=== PATIENT | male | born 1960 | race Caucasian/White ===

== ENCOUNTER 2018-02-06 14:59 | Emergency (ER) | payer OTHER ==
[2018-02-06] MEDS ORDERED: Cyclobenzaprine 10 MG Tab PO ONE (15:41)
[2018-02-06] MEDS ORDERED: Ibuprofen 800 MG Tab PO ONE (15:41)
--- NOTE | 2018-02-06 15:42 | EDM.PDOC ---
ED HPI GENERAL MEDICAL PROBLEM - General Chief Complaint: Head Injury Stated Complaint: HEAD AND BACK INJURY WITH SYNCOPE Time Seen by Provider: 02/06/18 15:16 Source of Information: Reports: Patient History Limitations: Reports: No Limitations - History of Present Illness INITIAL COMMENTS - FREE TEXT/NARRATIVE: 57 y/o M with headache, neck pain, and back pain after slipping on the ice. Works as a truck service technician, was at water station and slipped on a patch of ice. Fell back. Hit head. Positive LOC for about 10 seconds. Was able to get up but has had worsening neck and back pain. Headache is mild. No confusion/weakness. No vomiting. Has pain in left neck area. Also has diffuse low sharp back pain. Pain is constant, much worse with movement. Able to ambulate. No weakness/ numbness. No additional injury. Pain is moderate. No chest pain, SOB, abd pain. Lower Back Pain Score (Numeric/FACES): 9 - Related Data Allergies Allergy/AdvReac Type Severity Reaction Status Date / Time No Known Allergies Allergy Verified 02/06/18 15:17 Home Meds: Home Meds Allopurinol [Zyloprim] 300 mg PO DAILY 02/06/18 [History] Chlorthalidone 25 mg PO DAILY 02/06/18 [History] Cyclobenzaprine [Flexeril] 10 mg PO TID PRN #20 tab 02/06/18 [Rx] Ibuprofen [Motrin] 800 mg PO TID PRN #45 tab 02/06/18 [Rx] Losartan [Cozaar] 25 mg PO DAILY 02/06/18 [History] Naproxen [Naprosyn] 500 mg PO DAILY 02/06/18 [History] Simvastatin [Zocor] 10 mg PO DAILY 02/06/18 [History] metFORMIN [Glucophage XR] 250 mg PO DAILY 02/06/18 [History] oxyCODONE 5 mg PO QID PRN #8 tab 02/06/18 [Rx] Past Medical History Cardiovascular History: Reports: High Cholesterol, Hypertension, Other (See Below) Other Cardiovascular History: frequent PVC's Musculoskeletal History: Reports: Gout Neurological History: Reports: Head Trauma Endocrine/Metabolic History: Reports: Diabetes, Type II - Past Surgical History Musculoskeletal Surgical History: Reports: Shoulder Surgery Social & Family History - Tobacco Use Smoking Status *Q: Never Smoker - Caffeine Use Caffeine Use: Reports: Coffee, Energy Drinks - Recreational Drug Use Recreational Drug Use: No ED ROS GENERAL - Review of Systems Review Of Systems: See Below Constitutional: Denies: Fever Respiratory: Denies: Shortness of Breath, Cough Cardiovascular: Denies: Chest Pain GI/Abdominal: Denies: Abdominal Pain Musculoskeletal: Reports: Neck Pain, Back Pain Skin: Denies: Wound Neurological: Reports: Headache. Denies: Confusion, Dizziness ED EXAM, HEAD INJURY - Physical Exam Exam: See Below Exam Limited By: No Limitations General Appearance: Alert, WD/WN, No Apparent Distress Head: Normocephalic, Other (posterior scalp abrasion with mild soft tissue swelling, no crepitus or laceration ) Eyes: Bilateral Eye: EOMI, Normal Inspection, PERRL Ears: Normal External Exam Nose: Normal Inspection Throat/Mouth: Normal Inspection, Normal Oropharynx, Normal Voice, No Airway Compromise Neck: Normal Alignment, Normal Inspection, Paraspinous Muscle Tender, Tender Midline (Mid C spine TTP, no step offs or deformities, diffuse paraspinal TTP In L lateral C spine area.), Other Respiratory: No Respiratory Distress, Lungs Clear Cardiovascular: Normal Peripheral Pulses, Regular Rate, Rhythm Back Exam: Normal Inspection, Vertebral Tenderness (mid L spine, no step offs or deformities, skin normal ). No: CVA Tenderness (L), CVA Tenderness (R) Extremities: Normal Inspection Neurologic: optical store manager II-XII nml As Tested, No Motor/Sensory Deficits, Alert, Normal Mood/Affect, Oriented x 3 Skin: Normal Color, Warm/Dry Course - Vital Signs Last Recorded V/S: Last Vital Signs Temp 36.6 C 02/06/18 15:08 Pulse 68 02/06/18 15:08 Resp 16 02/06/18 15:08 BP 144/68 H 02/06/18 15:08 Pulse Ox 96 02/06/18 15:08 - Orders/Labs/Meds Orders: Active Orders 24 hr Category Date Time Status Lumbar Spine 2 or 3V [CR] Stat Exams 02/06/18 15:40 Taken Meds: Medications Discontinued Medications Generic Name Dose Route Start Last Admin Trade Name Freq PRN Reason Stop Dose Admin Cyclobenzaprine HCl 10 mg 02/06/18 15:41 02/06/18 16:00 Flexeril PO 02/06/18 15:42 10 mg ONETIME ONE Administration Ibuprofen 800 mg 02/06/18 15:41 02/06/18 15:59 Motrin PO 02/06/18 15:42 800 mg ONETIME ONE Administration - Re-Assessments/Exams Free Text/Narrative Re-Assessment/Exam: 02/06/18 18:26 CT head and C spine neg. XR L spine neg. Will treat for musculoskeletal pain. Departure - Departure Time of Disposition: 17:00 Disposition: Home, Self-Care 01 Clinical Impression: Neck pain Scalp abrasion Qualifiers: Encounter type: initial encounter Qualified Code(s): S00.01XA - Abrasion of scalp, initial encounter Back pain Qualifiers: Back pain location: low back pain Chronicity: acute Back pain laterality: midline Sciatica presence: without sciatica Qualified Code(s): M54.5 - Low back pain - Discharge Information Prescriptions: Cyclobenzaprine [Flexeril] 10 mg PO TID PRN #20 tab PRN Reason: Muscle Spasm Ibuprofen [Motrin] 800 mg PO TID PRN #45 tab PRN Reason: Pain oxyCODONE 5 mg PO QID PRN #8 tab PRN Reason: Pain Instructions: Abrasion, Cervical Sprain, Back Pain, Adult, [id number], Abrasion, [id number] Referrals: PCP,Not In Area [Primary Care Provider] - Forms: ED Department Discharge Additional Instructions: 1. Take ibuprofen as needed for pain. OK to take acetaminophen (Tylenol) in addition to ibuprofen - these medications work in different ways and are cleared by the body in different ways. 2. Take cyclobenzaprine (Flexeril) as needed for muscle spasm. 3. Take oxycodone as needed for severe pain. Noble this medication for pain that is not controlled by the above medications. Do not drive or operate heavy machinery or drink alcohol while taking oxycodone as it can cause dangerous drowsiness or confusion. 4. Ice areas of pain. After two days, ok to switch to heat. If you have persistent pain please follow up with your primary doctor for further care, including possible referrals to physical therapy if your symptoms aren't improving. - My Orders Last 24 Hours: My Active Orders 02/06/18 15:40 Lumbar Spine 2 or 3V [CR] Stat - Assessment/Plan Last 24 Hours: My Active Orders 02/06/18 15:40 Lumbar Spine 2 or 3V [CR] Stat
--- NOTE | 2018-02-06 16:47 | CT ---
CT cervical spine Technique: Multiple axial sections were obtained from above C1 inferiorly to the mid T2 level. Reconstruction sagittal and coronal images were reviewed. Comparison: No previous cervical spine imaging. Findings: Degenerative change is are noted between the dens and anterior arch of C1. Diffuse anterior osteophytes noted throughout the cervical spine. Mild disc space narrowing is noted at C6-7 and C7-T1 as well as T1-2. Minimal posterior osteophytes are seen at C3-4 as well as C6-7. Mild neural foraminal stenosis is noted at C3-4. Other neural foramina are fairly well patent. Mild degenerative change is scattered throughout the apophyseal joints. Ligamentum nuchal calcification is seen. No fracture is appreciated. No abnormal subluxation is seen. Mild diffuse degenerative change is seen within the uncovertebral joints. Impression: 1. Diffuse degenerative change throughout the cervical spine. 2. Nothing acute is seen on CT study of the cervical spine. Diagnostic code #3
--- NOTE | 2018-02-06 16:48 | CT ---
Head CT Technique: Multiple axial sections through the brain were obtained. Intravenous contrast was not utilized. Comparison: No previous intracranial imaging. Findings: Ventricles along with basal cisterns and sulci over the convexities are within normal limits for the patient's age. No abnormal parenchymal densities are seen. No evidence of intracranial hemorrhage. No midline shift or mass effect is seen. Old appearing fracture is noted within the medial right orbital wall with inward displacement. Mild mucosal thickening is seen within the ethmoid sinuses. Retention cyst is believed to be present within the medial left maxillary sinus. Old fracture is noted within the inferior orbital rim with what appears to be fixation wire. Nasal bone fracture is also seen most likely old. No acute calvarial abnormality is seen. Impression: 1. Old bony trauma as noted above. 2. Mucosal thickening within the ethmoid sinuses as well as probable retention cyst within the medial left maxillary sinus. 3. No acute intracranial abnormality is identified. Diagnostic code #2
--- NOTE | 2018-02-07 09:05 | CR ---
Lumbar spine: AP, lateral and coned-down lateral views centered to the lumbosacral junction were obtained. Comparison: No prior study. Diffuse disc space narrowing is noted within the lower thoracic spine as well as moderate disc space narrowing at L1-L2 and L2-L3. Posterior disc space narrowing is noted at L3-L4 and L5-S1. Diffuse endplate osteophytes are seen anteriorly and laterally throughout the lumbar spine and lower thoracic spine. Sacroiliac joints appear within normal limits. No acute fracture or abnormal subluxation is seen. Visualized pedicles, transverse and spinous processes appear intact. Impression: 1. Diffuse degenerative change. 2. Nothing acute is appreciated on three-view lumbar spine exam. Diagnostic code #2
== END 2018-02-06 17:02 | disposition home or self-care (01) ==
LOC: JD.ED 14:59
DX: S00.01XA Abrasion of scalp, initial encounter (principal); M54.5 Low back pain; M54.2 Cervicalgia; I10 Essential (primary) hypertension; E78.00 Pure hypercholesterolemia, unspecified; Z79.84 Long term (current) use of oral hypoglycemic drugs; Z79.899 Other long term (current) drug therapy; W00.0XXA Fall on same level due to ice and snow, initial encounter
CPT/HCPCS: 70450; 72100; 72125; 99284; A9270; 99283

== ENCOUNTER 2019-05-09 15:43 | Emergency (ER) | payer OTHER ==
[2019-05-09] MEDS ORDERED: Ketorolac 30 MG/ML SDV IM ONE (17:09)
--- NOTE | 2019-05-09 17:20 | EDM.PDOC ---
ED HPI GENERAL MEDICAL PROBLEM - General Chief Complaint: Back Pain or Injury Stated Complaint: BACK AND LEG INJURY Time Seen by Provider: 05/09/19 16:18 Source of Information: Reports: Patient, RN Notes Reviewed History Limitations: Reports: No Limitations - History of Present Illness INITIAL COMMENTS - FREE TEXT/NARRATIVE: Patient is a 59-year-old male who presents to the ED for the evaluation of a back injury. 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 While he was at work yesterday around 4:30 he was getting out of his truck in using the 3 point contact method he normally does, when he forgot his hard hat and reached into the cab to retrieve his hard hat and ended up missing a portion of the step, this resulted in him falling to the ground. He thinks that this is about 4 feet above the ground. He denies any loss of consciousness, blacking out or head or neck pain. He states that his pain is mostly into his left lower back and into his left anterior leg. He denies any previous injury to his lower back. He did take 1 Aleve last night and one Aleve this morning, this is provided little relief. Patient does have a slight limp due to the injury. This limp has not been present before the injury. 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: Other (see below) Other Treatments RESEARCH TEST ENGINE OPERATOR: naproxen this am Lower Back Pain Score (Numeric/FACES): 10 Left Knee Pain Score (Numeric/FACES): 6 - Related Data Allergies Allergy/AdvReac Type Severity Reaction Status Date / Time No Known Allergies Allergy Verified 02/06/18 15:17 Home Meds: Home Meds Chlorthalidone 25 mg PO DAILY 02/06/18 [History] Naproxen [Naprosyn] 500 mg PO DAILY 02/06/18 [History] Simvastatin [Zocor] 10 mg PO DAILY 02/06/18 [History] metFORMIN [Glucophage XR] 250 mg PO DAILY 02/06/18 [History] Orphenadrine [Norflex] 100 mg PO BID PRN #20 tab 05/09/19 [Rx] Past Medical History Cardiovascular History: Reports: High Cholesterol, Hypertension, Other (See Below) Other Cardiovascular History: frequent PVC's Musculoskeletal History: Reports: Gout Neurological History: Reports: Head Trauma Endocrine/Metabolic History: Reports: Diabetes, Type II - Past Surgical History Musculoskeletal Surgical History: Reports: Shoulder Surgery Social & Family History - Tobacco Use Smoking Status *Q: Never Smoker - Caffeine Use Caffeine Use: Reports: Coffee, Energy Drinks - Recreational Drug Use Recreational Drug Use: No ED ROS GENERAL - Review of Systems Review Of Systems: See Below Constitutional: Reports: No Symptoms HEENT: Reports: No Symptoms Respiratory: Reports: No Symptoms Cardiovascular: Reports: No Symptoms Endocrine: Reports: No Symptoms GI/Abdominal: Reports: No Symptoms : Reports: No Symptoms Musculoskeletal: Reports: No Symptoms Skin: Reports: No Symptoms Neurological: Denies: Numbness, Tingling, Weakness Psychiatric: Reports: No Symptoms Hematologic/Lymphatic: Reports: No Symptoms Immunologic: Reports: No Symptoms ED EXAM,LOWER BACK PAIN/INJURY - Physical Exam Exam: See Below Exam Limited By: No Limitations General Appearance: Alert, WD/WN, No Apparent Distress Eye Exam: Bilateral Eye: EOMI, Normal Inspection, PERRL Ears: Normal External Exam, Normal TMs Nose: Normal Inspection Throat/Mouth: Normal Inspection, Normal Lips, Normal Teeth, Normal Gums, Normal Oropharynx, Normal Voice, No Airway Compromise Head: Atraumatic, Normocephalic Neck: Normal Inspection, Supple, Non-Tender, Full Range of Motion Respiratory/Chest: No Respiratory Distress, Lungs Clear, Normal Breath Sounds, No Accessory Muscle Use, Chest Non-Tender Cardiovascular: Normal Peripheral Pulses, Regular Rate, Rhythm, No Murmur GI/Abdominal: Normal Bowel Sounds, Soft, Non-Tender, No Distention, No Mass Back Exam: Normal Inspection, Decreased Range of Motion (d/t pain), Other (Left lower back tenderness just lateral to spinal column above iliac crest) Extremities: Normal Inspection, Normal Range of Motion (he states that he appreciates pain when he fully extends and locks out his knee, there is pain into upper anterior thigh and into Left lower back.), Normal Capillary Refill Neurological: Alert, Normal Mood/Affect, Normal Dorsiflexion, Normal Plantar Flexion, Normal Gait, Normal Reflexes, No Motor/Sensory Deficits, Oriented x 3, Abnormal Gait (limping gait d/t pain) Psychiatric: Normal Affect, Normal Mood Skin Exam: Warm, Dry, Intact, Normal Color, No Rash Course - Vital Signs Last Recorded V/S: Last Vital Signs Temp 98.1 F 05/09/19 16:01 Pulse 41 L 05/09/19 16:01 Resp 20 05/09/19 16:01 BP 147/82 H 05/09/19 16:01 Pulse Ox 95 05/09/19 16:01 - Orders/Labs/Meds Orders: Active Orders 24 hr Category Date Time Status Lumbar Spine 2 or 3V [CR] Stat Exams 05/09/19 16:56 Taken Meds: Medications Discontinued Medications Generic Name Dose Route Start Last Admin Trade Name Freq PRN Reason Stop Dose Admin Ketorolac Tromethamine 30 mg 05/09/19 17:09 05/09/19 17:42 Toradol IM 05/09/19 17:10 30 mg ONETIME ONE Administration - Re-Assessments/Exams Free Text/Narrative Re-Assessment/Exam: 05/09/19 17:21 Patient presents to the ED for the evaluation of a lower back and left leg injury. Have ordered lumbar x-rays as most of his pain is into his lower back and does not seem to be in his hip or pelvis at all. Have ordered 30mg IM toradol for initial pain management. 05/09/19 17:54 Patient's lumbar x-rays are done, and did not demonstrate any acute bony abnormality or fracture at this time these were reviewed by myself and Dr. Miller, there does appear to be some straightening of the lordotic curve which may be suggestive of muscle spasm in the area. Departure - Departure Time of Disposition: 18:48 Disposition: Home, Self-Care 01 Condition: Fair Clinical Impression: Lower back pain Qualifiers: Chronicity: acute Back pain laterality: left Sciatica presence: with sciatica Sciatica laterality: sciatica of left side Qualified Code(s): M54.42 - Lumbago with sciatica, left side - Discharge Information *PRESCRIPTION DRUG MONITORING PROGRAM REVIEWED*: No *COPY OF PRESCRIPTION DRUG MONITORING REPORT IN PATIENT JUAN MANUEL: No Prescriptions: Orphenadrine [Norflex] 100 mg PO BID PRN #20 tab PRN Reason: Spasms Instructions: Muscle Strain, [id number] Referrals: PCP,Not In Area [Primary Care Provider] - Forms: ED Department Discharge Additional Instructions: You have been evaluated in the ED today for your lower back and left leg pain. Your x-ray did not demonstrate any sign of a bony fracture or abnormality. There was some straightening of the lumbar curve which would suggest a muscle spasm at this time. You have been provided with a prescription for Norflex, a muscle relaxer, please take this every 12 hours as needed for further spasm relief. This has been electronic was sent to the [place] [facility]. You may take 1-2 tablets of Aleve every 12 hours as needed for pain relief. You may also take 400-600 mg Ibuprofen Q6H PRN for pain relief. Do not exceed 3200mg in a 24 hr time span. Recommend the use of icy hot or BenGay to the affected area, you may also just use ice packs or heat packs as tolerated. Please return to the ED if your symptoms should change or worsen. - My Orders Last 24 Hours: My Active Orders 05/09/19 16:56 Lumbar Spine 2 or 3V [CR] Stat - Assessment/Plan Last 24 Hours: My Active Orders 05/09/19 16:56 Lumbar Spine 2 or 3V [CR] Stat
--- NOTE | 2019-05-12 08:08 | CR ---
Lumbar spine: AP, lateral and coned-down lateral view centered to the lumbosacral junction were obtained. Comparison: Previous lumbar spine exam of 02/06/18. Disc space narrowing is seen within the lower thoracic spine as well as posterior disc space narrowing throughout the lumbar spine. Diffuse anterior and lateral endplate osteophytes are seen throughout the visualized spine. Vertebral body heights are maintained. No subluxation or fracture is seen. Impression: 1. Mild diffuse degenerative change. No significant change from previous lumbar spine study is seen. Diagnostic code #2
== END 2019-05-09 19:06 | disposition home or self-care (01) ==
LOC: JD.ED 15:43
DX: M54.42 Lumbago with sciatica, left side (principal); E78.00 Pure hypercholesterolemia, unspecified; I10 Essential (primary) hypertension; E11.9 Type 2 diabetes mellitus without complications; Z79.899 Other long term (current) drug therapy
CPT/HCPCS: 72100; 96372; 99283; J1885